=== PATIENT | male | born 1980 | race Caucasian/White ===

== ENCOUNTER 2017-02-08 19:56 | Emergency (ER) | payer OTHER ==
[~2017-02-08] VITALS: Ht 182.9 cm; Wt 100.2 kg
[2017-02-08] MEDS ORDERED: ALLERGY MEDICAT25 MG PO (20:08)
[2017-02-08] MEDS ORDERED: SUDAFED 12-HOU120 MG PO (20:09)
--- NOTE | 2017-02-09 07:27 | EKG ---
[facility] [address] [facility] [place], [place] [address] Signed Normal sinus rhythm Normal ECG No previous ECGs available Confirmed by ZEINA BLACKBURN MD ([id number] on 02/09/2017 7:27:01 AM Electronically Signed By: ZEINA BLACKBURN MD 02/09/17 0727 PATIENT NAME: JAVI RAPP Alina Electrocardiogram DATE OF : 78 PHYSICIAN: ZEINA BLACKBURN MD REPORT #: [id number] REPORT IS CONFIDENTIAL AND NOT TO BE RELEASED WITHOUT AUTHORIZATION
== END 2017-02-08 23:36 | disposition home or self-care (01) ==
LOC: ED 19:56
DX: R07.89 Other chest pain (principal); L50.9 Urticaria, unspecified; Z87.891 Personal history of nicotine dependence; Z98.890 Other specified postprocedural states
CPT/HCPCS: 71020; 80053; 84484; 85025; 85379; 93005; 93010; 99284